=== PATIENT | female | born 1990 | race Caucasian/White ===

== ENCOUNTER → 2021-06-22 | Outpatient (CLI) | payer OTHER ==
[2021-06-22 18:50] LABS: ESTRADIOL 391.3 PG/ML; PROGESTERONE 19.74 NG/ML; THYROID STIMULATING HORMONE 2.97 uIU/ML (0.358-3.740)
== END ==
LOC: M LAB 17:08
PROVIDERS: ATTEND Obstetrics & Gynecology Reproductive Endocrinology
DX: Z32.01 Encounter for pregnancy test, result positive (principal)

== ENCOUNTER 2021-07-01 02:51 | Emergency (ER) | payer OTHER ==
[~2021-07-01] VITALS: Ht 165.1 cm; Wt 79.5 kg
[2021-07-01] MEDS ORDERED: ONDANSETRON 4MG/2ML VIAL IV ONE (04:50)
[2021-07-01] MEDS ORDERED: NS 1,000 ML IV ONE (04:50)
[2021-07-01 05:12] LABS: BASO % 0.1 % (0.0-1.0); EOS # 0.1 10^3/uL (0.0-0.5); EOS % 0.3 % (0.0-3.0); HEMATOCRIT 38.8 % (36.0-47.0); LYMPH # 4.7 10^3/uL (1.5-5.0); LYMPH % 25.9 % (24.0-44.0); MEAN CORPUSCULAR HEMOGLOBIN 30.5 pg (27.0-33.0); MEAN CORPUSCULAR HGB CONC 33.5 g/dl (32.0-36.5); MEAN CORPUSCULAR VOLUME 91.1 fl (80.0-96.0); MONO # 0.5 10^3/uL (0.0-0.8); MONO % 2.7 % (2.0-8.0); NEUTROPHILS # 12.9 10^3/uL (1.5-8.5); NEUTROPHILS % 70.5 % (36.0-66.0); PLATELET COUNT, AUTOMATED 339 10^3/uL (150-450); RED BLOOD COUNT 4.26 10^6/uL (4.00-5.40); WHITE BLOOD COUNT 18.3 10^3/uL (4.0-10.0)
[2021-07-01] MEDS ORDERED: ceFAZolin SOD 1 GM in D5W MINI-BAG PLUS 50 ML IV ONE ×2 (05:30→06:25)
[2021-07-01] MEDS ORDERED: RHOGAM 300 MCG (1500 IU) INJ (J2790) IM ONE (06:25)
[2021-07-01] MEDS ORDERED: CEPH500C PO (06:28)
[2021-07-01 07:35] VITALS: BP 135/82
== END 2021-07-01 07:49 | disposition home or self-care (01) ==
LOC: M ED 02:51
DX: O20.0 Threatened abortion (principal); O23.41 Unspecified infection of urinary tract in pregnancy, first trimester; O20.8 Other hemorrhage in early pregnancy; Z88.6 Allergy status to analgesic agent; Z3A.01 Less than 8 weeks gestation of pregnancy
CPT/HCPCS: 76801; 76817; 81001; 84702; 85025; 86850; 86900; 86901; 93976; 96372; 96374; 99283; J0690; J2405; J2790

== ENCOUNTER 2021-07-29 19:58 | Emergency (ER) | payer OTHER ==
[~2021-07-29] VITALS: Ht 165.1 cm; Wt 89.7 kg
[~2021-07-29 19:58] MED LIST: CEPH500C PO
[2021-07-29] MEDS ORDERED: PROG1CAP8 PO (20:07)
[2021-07-29] MEDS ORDERED: NS 1,000 ML IV ONE ×2 (21:05)
[2021-07-29] MEDS ORDERED: ONDANSETRON 4MG/2ML VIAL IV ONE (21:05)
[2021-07-29 21:32] LABS: BASO % 0.1 % (0.0-1.0); EOS % 0.2 % (0.0-3.0); HEMATOCRIT 41.1 % (36.0-47.0); HEMOGLOBIN 14.3 g/dl (12.0-15.5); LYMPH # 2.1 10^3/uL (1.5-5.0); MEAN CORPUSCULAR HGB CONC 34.8 g/dl (32.0-36.5); MEAN CORPUSCULAR VOLUME 89.2 fl (80.0-96.0); MONO # 0.3 10^3/uL (0.0-0.8); MONO % 2.2 % (2.0-8.0); NEUTROPHILS % 80.2 % (36.0-66.0); PLATELET COUNT, AUTOMATED 314 10^3/uL (150-450); RED BLOOD COUNT 4.61 10^6/uL (4.00-5.40); WHITE BLOOD COUNT 12.5 10^3/uL (4.0-10.0)
[2021-07-29 21:59] LABS: ALBUMIN 3.9 GM/DL (3.2-5.2); ALT/SGPT 76 U/L (12-78); BILIRUBIN,TOTAL 0.5 MG/DL (0.2-1.0); BLOOD UREA NITROGEN 6 MG/DL (7-18); CALCIUM LEVEL 9.5 MG/DL (8.5-10.1); CARBON DIOXIDE LEVEL 23 MEQ/L (21-32); CHLORIDE LEVEL 106 MEQ/L (98-107); CREATININE FOR GFR 0.56 MG/DL (0.55-1.30); GLOMERULAR FILTRATION RATE > 60.0 (>60); GLUCOSE, FASTING 97 MG/DL (70-100); MAGNESIUM LEVEL 2.1 MG/DL (1.8-2.4); POTASSIUM SERUM 5.3 MEQ/L (3.5-5.1); SODIUM LEVEL 137 MEQ/L (136-145); TOTAL PROTEIN 8.1 GM/DL (6.4-8.2)
[2021-07-29] MEDS ORDERED: ONDA4TAB6 PO (22:15)
[2021-07-29 23:40] VITALS: BP 132/72
== END 2021-07-29 23:52 | disposition home or self-care (01) ==
LOC: M ED 19:58
DX: E86.0 Dehydration (principal); Z88.8 Allergy status to other drugs, medicaments and biological substances
CPT/HCPCS: 80053; 81001; 83735; 85025; 96361; 96374; 99284; J2405

== ENCOUNTER 2021-10-01 11:14 | Emergency (ER) | payer OTHER ==
[~2021-10-01] VITALS: Ht 165.1 cm; Wt 90.7 kg
[~2021-10-01 11:14] MED LIST changes: +ONDA4TAB6 PO; +PROG1CAP8 PO
[2021-10-01 11:55] LABS: BASO % 0.1 % (0.0-1.0); EOS # 0.1 10^3/uL (0.0-0.5); EOS % 0.5 % (0.0-3.0); HEMATOCRIT 41.5 % (36.0-47.0); HEMOGLOBIN 14.2 g/dl (12.0-15.5); LYMPH # 3.1 10^3/uL (1.5-5.0); LYMPH % 21.1 % (24.0-44.0); MEAN CORPUSCULAR HEMOGLOBIN 31.1 pg (27.0-33.0); MEAN CORPUSCULAR HGB CONC 34.2 g/dl (32.0-36.5); MONO # 0.4 10^3/uL (0.0-0.8); MONO % 2.6 % (2.0-8.0); NEUTROPHILS # 11.1 10^3/uL (1.5-8.5); NEUTROPHILS % 75.2 % (36.0-66.0); PLATELET COUNT, AUTOMATED 290 10^3/uL (150-450); RED BLOOD COUNT 4.56 10^6/uL (4.00-5.40); WHITE BLOOD COUNT 14.8 10^3/uL (4.0-10.0)
[2021-10-01 12:24] LABS: ALBUMIN 3.6 GM/DL (3.2-5.2); ALT/SGPT 28 U/L (12-78); BILIRUBIN,DIRECT 0.1 MG/DL (0.0-0.2); BILIRUBIN,TOTAL 0.4 MG/DL (0.2-1.0); BLOOD UREA NITROGEN 6 MG/DL (7-18); CALCIUM LEVEL 9.3 MG/DL (8.5-10.1); CARBON DIOXIDE LEVEL 22 MEQ/L (21-32); CHLORIDE LEVEL 106 MEQ/L (98-107); CREATININE FOR GFR 0.59 MG/DL (0.55-1.30); GLOMERULAR FILTRATION RATE > 60.0 (>60); GLUCOSE, FASTING 93 MG/DL (70-100); LIPASE 127 U/L (73-393); POTASSIUM SERUM 3.4 MEQ/L (3.5-5.1); SODIUM LEVEL 137 MEQ/L (136-145)
[2021-10-01] MEDS ORDERED: ONDANSETRON 4MG/2ML VIAL IV ONE (14:10)
[2021-10-01] MEDS ORDERED: NS 1,000 ML IV ONE (14:10)
[2021-10-01] MEDS ORDERED: ACETAMINOPHEN 325 MG TAB PO ONE (15:35)
[2021-10-01] MEDS ORDERED: ONDA4TAB6 PO (15:49)
[2021-10-01 15:51] VITALS: BP 143/73
== END 2021-10-01 16:16 | disposition home or self-care (01) ==
LOC: M ED 11:14
DX: O21.9 Vomiting of pregnancy, unspecified (principal); Z88.6 Allergy status to analgesic agent; Z79.899 Other long term (current) drug therapy
CPT/HCPCS: 36415; 80048; 80076; 81001; 83690; 85025; 96361; 96374; 99284; J2405

== ENCOUNTER 2022-05-17 14:28 | Emergency (ER) | payer OTHER ==
[~2022-05-17] VITALS: Ht 165.1 cm; Wt 98.8 kg
[2022-05-17] MEDS ORDERED: LABE20TAB (15:30)
[2022-05-17] MEDS ORDERED: VITMTA PO (15:30)
[2022-05-17] MEDS ORDERED: METOCLOPRAMIDE INJ 10MG/2ML VIAL IV ONE (16:25)
[2022-05-17] MEDS ORDERED: ACETAMINOPHEN 500 MG TAB PO ONE (16:25)
[2022-05-17 16:45] LABS: BASO % 0.2 % (0.0-1.0); EOS # 0.1 10^3/uL (0.0-0.5); EOS % 1.3 % (0.0-3.0); HEMATOCRIT 39.2 % (36.0-47.0); HEMOGLOBIN 12.6 g/dl (12.0-15.5); LYMPH # 2.9 10^3/uL (1.5-5.0); LYMPH % 47.9 % (24.0-44.0); MEAN CORPUSCULAR HEMOGLOBIN 26.3 pg (27.0-33.0); MEAN CORPUSCULAR HGB CONC 32.1 g/dl (32.0-36.5); MEAN CORPUSCULAR VOLUME 81.7 fl (80.0-96.0); MONO # 0.2 10^3/uL (0.0-0.8); MONO % 2.8 % (2.0-8.0); NEUTROPHILS # 2.9 10^3/uL (1.5-8.5); NEUTROPHILS % 47.5 % (36.0-66.0); PLATELET COUNT, AUTOMATED 312 10^3/uL (150-450); WHITE BLOOD COUNT 6.1 10^3/uL (4.0-10.0)
[2022-05-17 17:15] LABS: BLOOD UREA NITROGEN 14 MG/DL (9-23); CALCIUM LEVEL 9.4 MG/DL (8.5-10.1); CARBON DIOXIDE LEVEL 24 MMOL/L (20-31); CHLORIDE LEVEL 105 MMOL/L (98-107); CREATININE FOR GFR 0.53 MG/DL (0.55-1.30); GLOMERULAR FILTRATION RATE > 60.0 (>60); GLUCOSE, FASTING 88 MG/DL (60-100); POTASSIUM SERUM 4.5 MMOL/L (3.5-5.1); SODIUM LEVEL 138 MMOL/L (136-145)
[2022-05-17 17:18] LABS: THYROID STIMULATING HORMONE 1.147 uIU/ML (0.55-4.78)
[2022-05-17] MEDS ORDERED: PROPARACAINE 0.5% OPHTH SOL 15ML OD ONE (17:40)
[2022-05-17] MEDS ORDERED: FLUORESCEIN OPHTH 1MG STRIP OD ONE (17:40)
[2022-05-17] MEDS ORDERED: FIORICET TAB PO ONE (17:50)
[2022-05-17 18:20] LABS: C REACTIVE PROTEIN QUANTITATIV < 0.40 MG/DL (<1.0)
[2022-05-17 18:22] LABS: ALBUMIN 4.1 G/DL (3.2-5.2); ALKALINE PHOSPHATASE 102 U/L (46-116); ALT/SGPT 74 U/L (7.0-40); AST/SGOT 34 U/L (<34); BILIRUBIN,DIRECT < 0.1 MG/DL (<0.4); BILIRUBIN,TOTAL 0.3 MG/DL (0.3-1.2); TOTAL PROTEIN 8.1 G/DL (5.7-8.2)
[2022-05-17 18:23] LABS: ERYTHROCYTE SEDIMENTATION RATE 25 mm/hr (0-20)
[2022-05-17] MEDS ORDERED: LABETALOL 200 MG TAB PO ONE (20:20)
[2022-05-17 20:36] VITALS: BP 155/72
[2022-05-17] MEDS ORDERED: FIOR1CAP PO (20:45)
[2022-05-17 21:09] VITALS: BP 142/88
== END 2022-05-17 21:27 | disposition home or self-care (01) ==
LOC: M ED 14:28
DX: R51.9 Headache, unspecified (principal); I10 Essential (primary) hypertension; Z88.6 Allergy status to analgesic agent; Z79.810 Long term (current) use of selective estrogen receptor modulators (SERMs); Z79.899 Other long term (current) drug therapy
CPT/HCPCS: 70450; 70544; 70551; 80048; 80076; 84439; 84443; 84702; 85025; 85652; 86140; 87486; 87581; 87633; 87798; 96374; 96375; 99284; J1100; J2765